=== PATIENT | female | born 1955 | race Caucasian/White ===

== ENCOUNTER 2018-07-12 13:00 | Inpatient (IN) | payer MEDICAID ==
--- NOTE | 2018-07-12 13:25 | ED Physician Chart ---
ED Chief Complaint/HPI - Patient Information Date Seen:: 07/12/18 Time Seen:: 13:10 Chief Complaint:: generalized pruritus History of Present Illness:: Patient had diffuse pruritus for last 1 year. She's also had 19 pound weight loss over an unspecified length of time. Historian:: Patient Review:: Transfer documents Reviewed ED Review of Systems - Review of Systems General/Constitutional: Weight loss Skin: Skin lesions, Rash, Other (family history and physical) Head: No headache Eyes: No loss of vision ENT: No earache Neck: No neck pain Cardio Vascular: No chest pain, No palpitations Pulmonary: No SOB GI: No nausea, No vomiting, No diarrhea Musculoskeletal: No bone or joint pain Endocrine: No polyuria, No polydipsia Psychiatric: Prior psych history Hematopoietic: No bruising Allergic/Immuno: No urticaria Neurological: No syncope, No focal symptoms ED Past Medical History - Past Medical History Past Medical History: PUD/GERD, Dementia, Other (status post urinary tract infection; osteoporosis; hereditary and idiopathic neuropathy; ) Family History: None Social History: Smoker, Other Surgical History: other (2 surgeries on left ankle each for a fracture; right heel pinned) Medication: Reviewed Family Medical History - Family Member Mother History Unknown: Yes ED Physical Exam - Physical Examination General/Constitutional: Awake, Well-developed, well-nourished, Alert, No distress, GCS 15, Non-toxic appearing, Ambulatory Head: Atraumatic Eyes: Lids, conjuctiva normal, PERRL, EOMI Other Skin comments:: Patient actively scratching; diffuse maculopapular rash appearing not to involve the face but there is erythema of the anterior neck; maculopapular rash on the back in a few cases noted to have a linear pattern ENMT: External ears, nose nl, Nasal exam nl, Lips, teeth, gums nl Neck: Nontender, Full ROM w/o pain, No JVD, No nuchal rigidity, No bruit, No mass, No stridor Respiratory: Nl effort/Exclusion, Clear to Auscultation, No Wheeze/Rhonchi/Rales Cardio Vascular: RRR, No murmur, gallop, rubs, NL S1 S2 GI: No tenderness/rebounding/guarding, No organomegaly, No hernia, Normal BS's, Nondistended, No mass/bruits, No McBurney tenderness : No CVA tenderness Extremities: No tenderness or effusion, Full ROM, normal strength in all extremities, No edema, Normal digits & nails Neuro/Psych: Alert/oriented, DTR's symmetric, Normal sensory exam, Normal motor strength, Judgement/insight normal, Mood normal, Normal gait, No focal deficits Misc: Normal back, No paraspinal tenderness ED Labs/Radiology/EKG Results - Lab Results Results: Laboratory Results WBC 17.3 Th/cmm (4.8-10.8) H 07/12/18 13:35 RBC 5.14 Mil/cmm (3.80-5.10) H 07/12/18 13:35 Hgb 12.7 gm/dL (12-16) 07/12/18 13:35 Hct 39.5 % (41.0-60) L 07/12/18 13:35 MCV 76.9 fl (81-100) L 07/12/18 13:35 MCH 24.8 pg (27.0-31.0) L 07/12/18 13:35 MCHC Differential 32.2 pg (28.0-36.0) 07/12/18 13:35 RDW 14.0 % (11.5-20.0) 07/12/18 13:35 Plt Count 518 Th/cmm (150-400) H 07/12/18 13:35 MPV 6.1 fl 07/12/18 13:35 Add Manual Diff YES 07/12/18 13:35 Sodium 137 mEq/L (136-145) 07/12/18 13:35 Potassium 2.8 mEq/L (3.5-5.1) L* 07/12/18 13:35 Chloride 101 mEq/L (98-107) 07/12/18 13:35 Carbon Dioxide 23.7 mEq/L (21.0-31.0) 07/12/18 13:35 Anion Gap 15.1 (7.0-16.0) 07/12/18 13:35 BUN 23 mg/dL (7-25) 07/12/18 13:35 Creatinine 0.9 mg/dL (0.6-1.2) 07/12/18 13:35 Est GFR ( Amer) > 60.0 ml/min (>90) 07/12/18 13:35 Est GFR (Non-Af Amer) > 60.0 ml/min 07/12/18 13:35 BUN/Creatinine Ratio 25.6 07/12/18 13:35 Glucose 99 mg/dL (70-105) 07/12/18 13:35 Calcium 9.5 mg/dL (8.6-10.3) 07/12/18 13:35 - Radiology Results Results: Chest x-ray showed cardiomegaly; no infiltrate ED Septic Shock - . Is Septic Shock (SBP<90, OR Lactate>4 mmol\L) present?: No ED Reassessment (Disposition) - Reassessment Reassessment Condition:: Unchanged - Diagnosis Diagnosis:: Diffuse pruritic rash; leukocytosis; possible scabies; recent weight loss; hypokalemia - Patient Disposition Admitted to:: Med/Surg Spoke to:: Jesus Gonzalez Admitting Medical Physician:: Jesus Gonzalez Condition at Disposition:: Stable, Unchanged
[2018-07-12 13:44] LABS: MEAN PLATELET VOLUME 6.1 fl
[2018-07-12 13:48] LABS: HEMATOCRIT 39.5 % (41.0-60); HEMOGLOBIN 12.7 gm/dL (12-16); MEAN CELL VOLUME 76.9 fl (81-100); MEAN CORPUSCULAR HEMOGLOBIN 24.8 pg (27.0-31.0); MEAN CORPUSCULAR HGB CONC 32.2 pg (28.0-36.0); PLATELET COUNT 518 Th/cmm (150-400); RED BLOOD COUNT 5.14 Mil/cmm (3.80-5.10)
[2018-07-12 13:53] LABS: WHITE BLOOD COUNT 17.3 Th/cmm (4.8-10.8)
[2018-07-12 13:57] LABS: ANION GAP 15.1 (7.0-16.0); BUN - UREA NITROGEN 23 mg/dL (7-25); CALCIUM SERUM 9.5 mg/dL (8.6-10.3); CARBON DIOXIDE 23.7 mEq/L (21.0-31.0); CHLORIDE 101 mEq/L (98-107); CREATININE - SERUM 0.9 mg/dL (0.6-1.2); GFR AFRICAN-AMERICAN > 60.0 ml/min (>90); GFR NON AFRICAN-AMERICAN > 60.0 ml/min; GLUCOSE 99 mg/dL (70-105); SODIUM SERUM 137 mEq/L (136-145)
[2018-07-12 14:00] LABS: POTASSIUM SERUM 2.8 mEq/L (3.5-5.1)
[2018-07-12 14:54] LABS: BAND NEUTROPHILE 0 % (0-10)
[2018-07-12 14:55] LABS: BASOPHIL 0 % (0-3); MONOCYTE 3 % (2-10)
[2018-07-12 14:56] LABS: EOSINOPHIL 1 % (0-5); LYMPHOCYTE 18 % (20-50); NEUTROPHILS 78 % (40-80)
[2018-07-12] MEDS ORDERED: Potassium Chloride 20 mEq ER Tab PO ONE ×2 (15:42→15:48)
[2018-07-12] MEDS ORDERED: Non-Formulary Item 1 EA (Protein Hydrolysate,Milk [Liquid Protein Fortifier] 30 ML) PO SCH (17:00)
[2018-07-12] MEDS: Peg-400/Propylene Ophth Soln 5 mL Bottle EACH EYE SCH (18:24)
[2018-07-12 18:30] LABS: URINE SOURCE RANDOM
[2018-07-12 18:35] VITALS: BP 144/71
[2018-07-12 19:25] LABS: URINE BILIRUBIN NEGATIVE (NEGATIVE); URINE BLOOD TRACE (NEGATIVE); URINE CLARITY CLOUDY (CLEAR); URINE COLOR YELLOW; URINE GLUCOSE (UA) NEGATIVE (NEGATIVE); URINE KETONE NEGATIVE (NEGATIVE); URINE MICROSCOPIC INDICATED? YES
[2018-07-12 19:26] LABS: URINE LEUKOCYTE ESTERASE TRACE (NEGATIVE); URINE NITRATE POSITIVE (NEGATIVE); URINE PROTEIN 1+ mg/dL (NEGATIVE); URINE UROBILINOGEN 0.2 E.U./dL (0.2 - 1.0)
[2018-07-12 19:27] LABS: URINE BACTERIA FEW /hpf (NONE SEEN); URINE EPITHELIAL CELLS NONE SEEN /lpf (FEW); URINE RBC NONE SEEN /hpf (0-5); URINE WBC 0-2 /hpf (0-5)
[2018-07-13 06:44] LABS: % BASOPHILS 0.8 % (0.0-2.0); % EOSINOPHILS 0.3 % (0.0-5.0); % LYMPHOCYTES 12.5 % (20.0-50.0); % MONOCYTES 3.4 % (2.0-10.0); BASOPHILE ABSOLUTE 0.1 Th/cumm (0-0.2); HEMOGLOBIN 10.8 gm/dL (12-16); LYMPHOCYTE ABSOLUTE 1.7 Th/cmm (1.5-3.0); MEAN CELL VOLUME 76.5 fl (81-100); MEAN CORPUSCULAR HEMOGLOBIN 25.4 pg (27.0-31.0); MEAN CORPUSCULAR HGB CONC 33.2 pg (28.0-36.0); MEAN PLATELET VOLUME 5.9 fl; MONOCYTE ABSOLUTE 0.5 Th/cmm (0.3-1.0); RED BLOOD COUNT 4.27 Mil/cmm (3.80-5.10); RED CELL DISTRIBUTION WIDTH 14.4 % (11.5-20.0)
[2018-07-13 07:27] LABS: HEMATOCRIT 32.6 % (41.0-60); PLATELET COUNT 400 Th/cmm (150-400); WHITE BLOOD COUNT 13.3 Th/cmm (4.8-10.8)
[2018-07-13 07:31] LABS: ALBUMIN 2.6 gm/dL (3.7-5.3); ALKALINE PHOSPHATASE 85 U/L (34-104); ANION GAP 10.3 (7.0-16.0); BILIRUBIN,DIRECT 0.13 mg/dL (0.0-0.2); BILIRUBIN,TOTAL 0.4 mg/dL (0.3-1.0); CARBON DIOXIDE 23.8 mEq/L (21.0-31.0); CHLORIDE 107 mEq/L (98-107); CREATININE - SERUM 0.7 mg/dL (0.6-1.2); GFR AFRICAN-AMERICAN > 60.0 ml/min (>90); GFR NON AFRICAN-AMERICAN > 60.0 ml/min; GLUCOSE 149 mg/dL (70-105); POTASSIUM SERUM 4.1 mEq/L (3.5-5.1); SGOT 15 U/L (13-39); SGPT/ALT 11 U/L (7-52); SODIUM SERUM 137 mEq/L (136-145); TOTAL PROTEIN,SERUM 5.2 gm/dL (6.0-8.3)
--- NOTE | 2018-07-13 08:44 | Diagnostic Imaging Report ---
CHEST X-RAY: AP view INDICATION: COPD COMPARISON: None FINDINGS: Increased interstitial lung markings are noted. There is a moderate to large retrocardiac hiatal hernia. There is no focal consolidation or pleural effusions The heart is normal in size. Atherosclerosis of the aortic arch is noted. Degenerative changes of the spine are noted. IMPRESSION: Increased interstitial lung markings. Findings are nonspecific and may be due to chronic changes. No focal consolidation. Moderate to large retrocardiac hiatal hernia. Lateral views of provide additional assessment. Atherosclerotic vascular disease.
[2018-07-13] MEDS: Peg-400/Propylene Ophth Soln 5 mL Bottle EACH EYE SCH ×2 (08:47→16:54)
[2018-07-13 08:53] LABS: BUN - UREA NITROGEN 17 mg/dL (7-25)
[2018-07-13] MEDS ORDERED: Non-Formulary Item 1 EA (Cranberry Fruit [Cranberry] 450 MG) PO SCH (09:00)
--- NOTE | 2018-07-13 09:15 | History and Physical ---
History of Present Illness - HPI Chief Complaint: Pruritus and abnormal weight loss. HPI: Patient refer body itching for a year and loss of weight. Vital Signs: Last Vital Signs Temp 97.3 F 07/13/18 08:29 Pulse 70 07/13/18 08:29 Resp 18 07/13/18 08:29 BP 118/68 07/13/18 08:29 Pulse Ox 97 07/13/18 08:29 Past Medical History Cardiovascular: Report: No Pertinent Hx Pulmonary: Report: No Pertinent Hx ASSISTANT STORE DIRECTOR: Report: No Pertinent Hx GI: Report: No Pertinent Hx Psych: Report: Addictions, Schizophrenia Musculoskeletal: Report: Weakness Rheumatologic: Report: No pertinent Hx Infectious Disease: Report: Other (Possible scabiasis) Renal/: Report: No Pertinent Hx Endocrine: Report: No Pertinent Hx Dermatology: Report: Rash (Macupapular rash in all body) - Past Surgical History Past Surgical History: Other (Ankle surgery) Family Medical History - Family Member Mother History Unknown: Yes Social History Smoke: No Alcohol: None Drugs: Other (Quiet few years ago) Lives: Group Home Domestic Violence: Negative - Medications Home Medications: Home Medication Medication Instructions Recorded Type Acetaminophen [Tylenol] 650 mg PO Q6H PRN 07/12/18 History Calcium Carbonate [Calcium] 1 tab PO BID 07/12/18 History Cranberry Fruit [Cranberry] 450 mg PO DAILY 07/12/18 History Dextran 70/Hypromellose 1 each OP BID 07/12/18 History [Artificial Tears] Diphenhydramine HCL [Benadryl] 50 mg PO Q6H PRN 07/12/18 History Escitalopram Oxalate [Lexapro] 5 mg PO DAILY 07/12/18 History Fluocinonide 0.05% Cream [Lidex 1 appl TP BID 07/12/18 History 0.05%] Loratadine [Claritin] 10 mg PO DAILY 07/12/18 History Melatonin 6 mg PO HS 07/12/18 History Montelukast [Singulair] 10 mg PO DAILY 07/12/18 History Multivitamin w/ Minerals 1 tab PO DAILY 07/12/18 History [Theragran M] Protein Hydrolysate,Milk [Liquid 30 ml PO BID 07/12/18 History Protein Fortifier] QUEtiapine Fumarate [SEROquel] 100 mg PO HS 07/12/18 History Sulfamethoxazole/TMP [Bactrim Ds] 1 tab PO BID 07/12/18 History Zolpidem Tartrate 10 mg PO HS 07/12/18 History busPIRone [Buspar] 5 mg PO BID 07/12/18 History clonazePAM [klonoPIN] 1 mg PO BID 07/12/18 History hydrOXYzine [Atarax*] 50 mg PO Q6H PRN 07/12/18 History - Allergies Allergies/Adverse Reactions: Allergies Allergy/AdvReac Type Severity Reaction Status Date / Time cheese Allergy Verified 07/12/18 13:23 milk Allergy Verified 07/12/18 13:24 Penicillins Allergy Verified 07/12/18 13:23 shrimp Allergy Verified 07/12/18 13:24 Review of Systems - Review of Systems Constitutional: Report: Weakness Eyes: Report: No Significant ENT: Report: No Significant Respiratory: Report: No Significant Cardiovascular: Report: No Significant Gastrointestinal: Report: No Significant Genitourinary: Report: No Significant Musculoskeletal: Report: No Significant Skin: Report: Rash, Other (Generalized itching rash) Neurological: Report: Weakness Physical Exam - Physical Exam HEENT: Report: Ears Nose Throat within normal limits Neck: Report: Within normal limits Cardiovascular Systems: Report: Regular, Rate and Rhythm Respiratory: Report: Breath Sounds are within normal limits Abdomen: Report: Non-tender to palpation, Abnormal Bowel Sounds Extremities: Report: Non-tender to palpation. Skin: Report: Skin Rash noted, Other (Macupapular itching rash in all body except face.) Neuro/Psych: Report: Depressed affect, Other (Anxious.) - Lab Results All Lab Results last 24 hours: Laboratory Results - last 24 hr 07/12/18 07/12/18 07/12/18 13:35 13:35 13:35 WBC 17.3 H RBC 5.14 H Hgb 12.7 Hct 39.5 L MCV 76.9 L MCH 24.8 L MCHC Differential 32.2 RDW 14.0 Plt Count 518 H MPV 6.1 Add Manual Diff YES Neutrophils % Band Neutrophils % 0 Lymphocytes % Monocytes % Eosinophils % Basophils % Neutrophils (Manual) 78 Lymphocytes 18 L Monocytes 3 Eosinophils 1 Basophils 0 Sodium 137 Potassium 2.8 L* Chloride 101 Carbon Dioxide 23.7 Anion Gap 15.1 BUN 23 Creatinine 0.9 Est GFR ( Amer) > 60.0 Est GFR (Non-Af Amer) > 60.0 BUN/Creatinine Ratio 25.6 Glucose 99 Whole Bld Lactic Acid Calcium 9.5 Magnesium 1.7 L Total Bilirubin Direct Bilirubin AST ALT Alkaline Phosphatase Total Protein Albumin Globulin Albumin/Globulin Ratio Urine Source Urine Color Urine Clarity Urine pH Ur Specific Cadet Urine Protein Urine Glucose (UA) Urine Ketones Urine Blood Urine Nitrate Urine Bilirubin Urine Urobilinogen Ur Leukocyte Esterase Urine RBC Urine WBC Ur Epithelial Cells Calcium Oxalate Crystal Urine Bacteria 07/12/18 07/12/18 07/13/18 14:20 17:00 06:25 WBC 13.3 H D RBC 4.27 Hgb 10.8 L Hct 32.6 L D MCV 76.5 L MCH 25.4 L MCHC Differential 33.2 RDW 14.4 Plt Count 400 D MPV 5.9 Add Manual Diff Neutrophils % 83.0 H Band Neutrophils % Lymphocytes % 12.5 L Monocytes % 3.4 Eosinophils % 0.3 Basophils % 0.8 Neutrophils (Manual) Lymphocytes Monocytes Eosinophils Basophils Sodium Potassium Chloride Carbon Dioxide Anion Gap BUN Creatinine Est GFR ( Amer) Est GFR (Non-Af Amer) BUN/Creatinine Ratio Glucose Whole Bld Lactic Acid 1.74 Calcium Magnesium Total Bilirubin Direct Bilirubin AST ALT Alkaline Phosphatase Total Protein Albumin Globulin Albumin/Globulin Ratio Urine Source RANDOM Urine Color YELLOW Urine Clarity CLOUDY H Urine pH 8.0 Ur Specific Cadet 1.010 Urine Protein 1+ Urine Glucose (UA) NEGATIVE Urine Ketones NEGATIVE Urine Blood TRACE Urine Nitrate POSITIVE H Urine Bilirubin NEGATIVE Urine Urobilinogen 0.2 Ur Leukocyte Esterase TRACE H Urine RBC NONE SEEN Urine WBC 0-2 Ur Epithelial Cells NONE SEEN Calcium Oxalate Crystal FEW Urine Bacteria FEW 07/13/18 06:25 WBC RBC Hgb Hct MCV MCH MCHC Differential RDW Plt Count MPV Add Manual Diff Neutrophils % Band Neutrophils % Lymphocytes % Monocytes % Eosinophils % Basophils % Neutrophils (Manual) Lymphocytes Monocytes Eosinophils Basophils Sodium 137 Potassium 4.1 Chloride 107 Carbon Dioxide 23.8 Anion Gap 10.3 BUN 17 Creatinine 0.7 Est GFR ( Amer) > 60.0 Est GFR (Non-Af Amer) > 60.0 BUN/Creatinine Ratio 24.3 Glucose 149 H Whole Bld Lactic Acid Calcium 8.0 L Magnesium Total Bilirubin 0.4 Direct Bilirubin 0.13 AST 15 ALT 11 Alkaline Phosphatase 85 Total Protein 5.2 L Albumin 2.6 L Globulin 2.6 Albumin/Globulin Ratio 1.0 Urine Source Urine Color Urine Clarity Urine pH Ur Specific Cadet Urine Protein Urine Glucose (UA) Urine Ketones Urine Blood Urine Nitrate Urine Bilirubin Urine Urobilinogen Ur Leukocyte Esterase Urine RBC Urine WBC Ur Epithelial Cells Calcium Oxalate Crystal Urine Bacteria - Assessment Assessment: Current Active Problems Problem Status Onset WEIGHT LOSS WITH ITCHING Acute Patient is awake, alert, complaining of body itching. Dx: abnormal loss weight, possible scabiasis, elevated WBC. - Plan Plan: Patient in IV NS, Prednisone, Benadryl, continue with SNF meds, Consult with IM and Psychiatry requested.
--- NOTE | 2018-07-13 09:53 | Diagnostic Imaging Report ---
CHEST X-RAY: AP view INDICATION: Leukocytosis COMPARISON: 07/12/2018 FINDINGS: There is a moderate to large hiatal hernia. Chronic lung changes are noted. There is no focal consolidation or pleural effusions The heart is normal in size. Atherosclerosis is noted. IMPRESSION: Moderate to large size hiatal hernia. Chronic changes with no focal consolidation identified.
--- NOTE | 2018-07-13 15:09 | Diagnostic Imaging Report ---
Ultrasound abdomen HISTORY: Abdominal pain weight loss COMPARISON: Pelvic ultrasound same day Technique: Sonography of the abdomen was performed in multiple planes. FINDINGS: The liver demonstrates normal echogenicity with no evidence of focal lesions. The liver measures 15.8 cm. A solitary gallstones is noted. The common bile duct measures 8 mm. Evaluation of the pancreas is limited due to bowel gas. The right kidney measures 11.2 x 4.6 cm. No evidence of focal lesions or hydronephrosis. The left kidney measures 11.6 x 6.4 cm. There is probable left superior pole parapelvic cyst measuring 3.1 cm x 2.6 cm. There is suggestion of a large left renal calculus. The spleen measures 8.4 cm. IMPRESSION: Cholelithiasis. No evidence of gallbladder wall thickening or pericholecystic fluid. There appear to be a large left renal calculus, possibly staghorn calculus. CT would further clarify Left parapelvic cyst measuring 3.1 x 2.6 cm versus dilated left renal calyx.
--- NOTE | 2018-07-13 15:10 | Diagnostic Imaging Report ---
Ultrasound pelvis HISTORY: Abnormal weight loss, postmenopausal COMPARISON: Ultrasound abdomen the same day Technique: Longitudinal and transverse sonographic sector images of the pelvis were obtained transabdominally and transvaginally. FINDINGS: The uterus measures 4.8 x 2.3 x 3.8 cm. There is small amount fluid within the endometrial cavity. This limits assessment of the endometrial echo complex. The ovaries are not visualized. No free fluid identified. IMPRESSION: Small amount of fluid seen within the endometrial cavity. This limits assessment of the endometrial echo complex. Clinical correlation is recommended given patient's postmenopausal status. Follow-up is needed The ovaries are not identified. No free fluid in the pelvis.
--- NOTE | 2018-07-14 01:15 | Consultation ---
DATE OF CONSULTATION: 07/13/2018 INTERNAL MEDICINE CONSULTATION CHIEF COMPLAINT: Generalized pruritus, worsening rash over a year and a 40-pound weight loss. HISTORY OF PRESENT ILLNESS: The patient is a 63-year-old female with history of acid reflux disease, dementia and history of schizophrenia who started developing a rash, pruritic in nature about a year ago and has gradually getting worst. Apparently, she has been treated with multiple creams at [facility] with mild improvement of her symptoms. The patient was also treated for possible scabies presumably with Elimite again with no improvement of her symptoms. If the rash is intensely pruritic and is currently mostly located on the chest, upper and lower extremities. She also reports about a 40-pound weight loss over the last year, which she blames on lactic products, which she used daily at the assisted. She apparently has an allergy to lactic products and has been avoiding them and; therefore, she has not been eating as she did in the past leading to her weight loss. Pertinent findings on admission include a white count of 18.3 and a UA consistent with UTI. PAST MEDICAL HISTORY: As noted above. PAST SURGICAL HISTORY: None listed. FAMILY HISTORY: Noncontributory to this admission. SOCIAL HISTORY: Currently, denies any tobacco, ETOH or illicit drug usage. She lives at a assisted under the care of Dr. Gonzalez. ALLERGIES: She is allergic to CHEESE, MILK PENICILLINS and SHRIMP. OUTPATIENT MEDICATIONS: Multivitamins every day, BuSpar 5 mg b.i.d., calcium carbonate 500 mg b.i.d., Klonopin 1 mg b.i.d., Lexapro 5 mg every day, Lidex cream b.i.d., hydroxyzine 50 mg q. 6 and Claritin 10 mg every day. REVIEW OF SYSTEMS: CONSTITUTIONAL: She denies any fever or chills. Weight loss as noted above. CARDIAC: No chest pain, no palpitations. PULMONARY: Denies any cough, any phlegm, any secretions and shortness of breath. GASTROINTESTINAL: No bowel habit changes including no acid reflux disease symptomatology. No early satiety. No diarrhea or constipation. GENITOURINARY: Denies any UTI symptomatology at this time. NEUROLOGIC: No changes in vision, no headaches. Denies any syncope. PHYSICAL EXAMINATION: VITAL SIGNS: Temperature 97.3 afebrile, pulse 70, respirations 18, BP 118/68, satting 97% on room air. GENERAL: She is a well-developed, well-nourished female, not in distress. HEAD AND NECK: Normocephalic and atraumatic. Pupils are reactive to light. Extraocular movements are intact. Oropharynx is moist and clear. CARDIOVASCULAR: Regular rate and rhythm without any murmurs. LUNGS: Clear to auscultation bilaterally. ABDOMEN: Soft, supple, nontender, nondistended, normoactive bowel sounds. LOWER EXTREMITIES: There is no edema. DERMATOLOGIC: There is a diffuse maculopapular rash with areas of more intense erythema, vesicular like with excoriations around these vesicles. The rash is nonblanching; it seems. ASSESSMENT: 1. Generalized pruritic rash, differential, but the appearance in the history; this is likely scabies. Other etiologies could include an allergic reaction versus secondary to bed bugs versus likely Staphylococcus infection. 2. Leukocytosis. Unknown if the patient had a recent steroid course, but she does not appear to be septic and this again does not appear to be an infectious rash. 3. Urinary tract infection. 4. Recent weight loss. 5. History of schizophrenia. 7. History of acid reflux disease. PLAN: The patient has been admitted to the medical/surgical floor for further management and care. A scabies skin examination has been asked for and the patient has been empirically started on IV antibiotics as well as Ivermectin x 1 dose. I will also order Elimite to be given again and ESR and CRP levels as well as a CEA AFP levels will be asked for. Will follow urine cultures and sensitivities and albumin and prealbumin level as well as a dietary consult will be asked for. Thank you very much for this consult. JOB# [id number] DANIEL
[2018-07-14 08:26] LABS: HEMATOCRIT 35.9 % (41.0-60); HEMOGLOBIN 11.4 gm/dL (12-16); MEAN CELL VOLUME 77.3 fl (81-100); MEAN CORPUSCULAR HEMOGLOBIN 24.5 pg (27.0-31.0); MEAN CORPUSCULAR HGB CONC 31.7 pg (28.0-36.0); PLATELET COUNT 413 Th/cmm (150-400); RED BLOOD COUNT 4.64 Mil/cmm (3.80-5.10); RED CELL DISTRIBUTION WIDTH 14.8 % (11.5-20.0); WHITE BLOOD COUNT 12.1 Th/cmm (4.8-10.8)
[2018-07-14 08:27] LABS: % BASOPHILS 0.4 % (0.0-2.0); % EOSINOPHILS 0.4 % (0.0-5.0); % LYMPHOCYTES 17.3 % (20.0-50.0); % MONOCYTES 3.9 % (2.0-10.0); LYMPHOCYTE ABSOLUTE 2.1 Th/cmm (1.5-3.0); MEAN PLATELET VOLUME 5.9 fl; MONOCYTE ABSOLUTE 0.5 Th/cmm (0.3-1.0); NEUTROPHILE ABSOLUTE 9.5 Th/cmm (1.8-8.0)
[2018-07-14 08:40] LABS: ALB/GLOB RATIO 0.9 (1.0-1.8); ALBUMIN 2.9 gm/dL (3.7-5.3); ALKALINE PHOSPHATASE 83 U/L (34-104); ANION GAP 13.1 (7.0-16.0); BILIRUBIN,TOTAL 0.3 mg/dL (0.3-1.0); BUN - UREA NITROGEN 13 mg/dL (7-25); CALCIUM SERUM 8.5 mg/dL (8.6-10.3); CARBON DIOXIDE 22.2 mEq/L (21.0-31.0); CHLORIDE 107 mEq/L (98-107); CREATININE - SERUM 0.6 mg/dL (0.6-1.2); GFR AFRICAN-AMERICAN > 60.0 ml/min (>90); GFR NON AFRICAN-AMERICAN > 60.0 ml/min; GLUCOSE 134 mg/dL (70-105); POTASSIUM SERUM 4.3 mEq/L (3.5-5.1); SGOT 16 U/L (13-39); SGPT/ALT 9 U/L (7-52); SODIUM SERUM 138 mEq/L (136-145)
--- NOTE | 2018-07-14 08:59 | General Progress Note ---
Subjective - Review of Systems Service Date: 07/14/17 Subjective: I have back pain and itching Objective - Results Result Diagrams: 07/14/18 08:15 07/14/18 08:15 Recent Labs: Laboratory Last Values WBC 12.1 Th/cmm (4.8-10.8) H 07/14/18 08:15 RBC 4.64 Mil/cmm (3.80-5.10) 07/14/18 08:15 Hgb 11.4 gm/dL (12-16) L 07/14/18 08:15 Hct 35.9 % (41.0-60) L 07/14/18 08:15 MCV 77.3 fl (81-100) L 07/14/18 08:15 MCH 24.5 pg (27.0-31.0) L 07/14/18 08:15 MCHC Differential 31.7 pg (28.0-36.0) 07/14/18 08:15 RDW 14.8 % (11.5-20.0) 07/14/18 08:15 Plt Count 413 Th/cmm (150-400) H 07/14/18 08:15 MPV 5.9 fl 07/14/18 08:15 Add Manual Diff YES 07/12/18 13:35 Neutrophils % 78.0 % (40.0-80.0) 07/14/18 08:15 Band Neutrophils % 0 % (0-10) 07/12/18 13:35 Lymphocytes % 17.3 % (20.0-50.0) L 07/14/18 08:15 Monocytes % 3.9 % (2.0-10.0) 07/14/18 08:15 Eosinophils % 0.4 % (0.0-5.0) 07/14/18 08:15 Basophils % 0.4 % (0.0-2.0) 07/14/18 08:15 Neutrophils (Manual) 78 % (40-80) 07/12/18 13:35 Lymphocytes 18 % (20-50) L 07/12/18 13:35 Monocytes 3 % (2-10) 07/12/18 13:35 Eosinophils 1 % (0-5) 07/12/18 13:35 Basophils 0 % (0-3) 07/12/18 13:35 Sodium 138 mEq/L (136-145) 07/14/18 08:15 Potassium 4.3 mEq/L (3.5-5.1) 07/14/18 08:15 Chloride 107 mEq/L (98-107) 07/14/18 08:15 Carbon Dioxide 22.2 mEq/L (21.0-31.0) 07/14/18 08:15 Anion Gap 13.1 (7.0-16.0) 07/14/18 08:15 BUN 13 mg/dL (7-25) 07/14/18 08:15 Creatinine 0.6 mg/dL (0.6-1.2) 07/14/18 08:15 Est GFR ( Amer) > 60.0 ml/min (>90) 07/14/18 08:15 Est GFR (Non-Af Amer) > 60.0 ml/min 07/14/18 08:15 BUN/Creatinine Ratio 21.7 07/14/18 08:15 Glucose 134 mg/dL (70-105) H 07/14/18 08:15 Whole Bld Lactic Acid 1.74 mmol/L (0.60-1.99) 07/12/18 14:20 Calcium 8.5 mg/dL (8.6-10.3) L 07/14/18 08:15 Magnesium 1.7 mg/dL (1.9-2.7) L 07/12/18 13:35 Total Bilirubin 0.3 mg/dL (0.3-1.0) 07/14/18 08:15 Direct Bilirubin 0.13 mg/dL (0.0-0.2) 07/13/18 06:25 AST 16 U/L (13-39) 07/14/18 08:15 ALT 9 U/L (7-52) 07/14/18 08:15 Alkaline Phosphatase 83 U/L (34-104) 07/14/18 08:15 Total Protein 6.0 gm/dL (6.0-8.3) 07/14/18 08:15 Albumin 2.9 gm/dL (3.7-5.3) L 07/14/18 08:15 Globulin 3.1 gm/dL 07/14/18 08:15 Albumin/Globulin Ratio 0.9 (1.0-1.8) L 02/15/19 08:15 Urine Source RANDOM 07/12/18 17:00 Urine Color YELLOW 07/12/18 17:00 Urine Clarity CLOUDY (CLEAR) H 07/12/18 17:00 Urine pH 8.0 (4.6 - 8.0) 07/12/18 17:00 Ur Specific [place] 1.010 (1.005-1.030) 07/12/18 17:00 Urine Protein 1+ mg/dL (NEGATIVE) 07/12/18 17:00 Urine Glucose (UA) NEGATIVE mg/dL (NEGATIVE) 07/12/18 17:00 Urine Ketones NEGATIVE mg/dL (NEGATIVE) 07/12/18 17:00 Urine Blood TRACE (NEGATIVE) 07/12/18 17:00 Urine Nitrate POSITIVE (NEGATIVE) H 07/12/18 17:00 Urine Bilirubin NEGATIVE (NEGATIVE) 07/12/18 17:00 Urine Urobilinogen 0.2 E.U./dL (0.2 - 1.0) 07/12/18 17:00 Ur Leukocyte Esterase TRACE (NEGATIVE) H 07/12/18 17:00 Urine RBC NONE SEEN /hpf (0-5) 07/12/18 17:00 Urine WBC 0-2 /hpf (0-5) 07/12/18 17:00 Ur Epithelial Cells NONE SEEN /lpf (FEW) 07/12/18 17:00 Calcium Oxalate Crystal FEW /hpf 07/12/18 17:00 Urine Bacteria FEW /hpf (NONE SEEN) 07/12/18 17:00 Vancomycin Trough 2.7 ug/mL (5-10) L 07/14/18 08:15 - Physical Exam Vitals and I&O: Vital Signs Temp 97.3 F 07/14/18 08:51 Pulse 66 07/14/18 08:51 Resp 18 07/14/18 08:51 BP 122/78 07/14/18 08:51 Pulse Ox 98 07/14/18 08:51 Intake & Output 07/13/18 07/14/18 07/14/18 18:59 06:59 18:59 Intake Total 250 240 Balance 250 240 Weight (lbs) 67.132 kg Intake: Intake, IV Amount 250 Vancomycin HCl 1 gm In 250 Sodium Chloride 0.9% 250 ml @ 165 mls/hr IV Q24HR@ 0900 [facility] Rx#:[id number] Oral 240 Other: # Voids 1 Stool Characteristics Soft Soft Weight Source Bedscale Active Medications: Current Medications Acetaminophen (Tylenol) 650 mg PO Q6H PRN PRN Reason: TEMP >100 OR MILD PAIN Last Admin: 07/13/18 16:54 Dose: 650 mg Diphenhydramine HCl (Benadryl) 50 mg PO Q6H [facility] Stop: 09/12/18 08:59 Vancomycin HCl 1 gm/ Sodium (Chloride) 250 mls @ 165 mls/hr IV Q24HR@0900 [facility] Stop: 09/10/18 17:59 Last Infusion: 07/13/18 16:57 Dose: Infused Miscellaneous (Vancomycin Iv Per Pharmacy) 1 ea MC DAILY [facility] Stop: 09/10/18 17:29 Mupirocin (Bactroban Oint) 1 appl NS BID [facility] Stop: 07/20/18 17:01 Prednisone (Deltasone) 20 mg PO Q12HR [facility] Stop: 09/10/18 20:59 Last Admin: 07/13/18 20:38 Dose: 20 mg Propylene Glycol (Systane Ophth Soln) 1 drop EACH EYE BID [facility] Stop: 09/10/18 16:59 Last Admin: 07/13/18 16:54 Dose: 1 drop Quetiapine Fumarate (Seroquel) 100 mg PO HS [facility]; Protocol Stop: 09/10/18 20:59 Last Admin: 07/13/18 20:38 Dose: 100 mg Zolpidem Tartrate (Ambien) 10 mg PO HS [facility] Stop: 09/10/18 20:59 Last Admin: 07/13/18 20:38 Dose: 10 mg General: Alert, Oriented x3 HEENT: Atraumatic Cardiovascular: Regular rate Lungs: Clear to auscultation Abdomen: Bowel sounds Extremities: Other (No edema) Neurological: Normal gait Skin: Other (Macopapular rash in al body except face. ) Psych/Mental Status: Other (Anxious and confused) Assessment/Plan - Problem List Patient Problems: All Active Problems WEIGHT LOSS WITH ITCHING (Acute) - Assessment Assessment: Current Active Problems Problem Status Onset WEIGHT LOSS WITH ITCHING Acute Patient is awake, alert, complaining of body itching. WBC improving. US shows possible renal stone. Dx: abnormal loss weight, possible scabiasis, elevated WBC. - Plan Plan: Patient in IV NS, Prednisone, Benadryl, continue with SNF meds, Already seen by IM, awaiting Psychiatry evaluation. Abdominal and pelvic CT are ordered. Will continue to monitor. Nutritional Asmnt/Malnutr-PDOC - Dietary Evaluation Malnutrition Findings (Please click <Entered> for more info): Nutritional Asmnt/Malnutrition Start: 07/13/18 14: 05 Text: Status: Complete Freq: Protocol: Document 07/13/18 14:05 [email or web address] (Rec: 07/13/18 14:24 MIKG [email or web address]) Nutritional Asmnt/Malnutrition Patient General Information Nutritional Screening High Risk Diagnosis wt loss, possible scabies Pertinent Medical Hx/Surgical Hx PUD/GERD, dementia, UTI Subjective Information Pt seen lying in bed at time of visit, awake and alert. Pt stated she had wt loss in the past months d/t she got rashes and not able to eat. Verified with pt that she is lactose intolerance and allergic to shrimp. Pt is not able to take food contians lactose. Offered pt oral supplements for extra kcal and protein, pt accepted. Current Diet Order/ Nutrition Support regular Pertinent Medications seroquel, vancomycin Pertinent Labs 07/13 Glucose 149, Ca 8.0, Alb 2.6 07/12 K 2.8 Nutritional Hx/Data Height 1.68 m Height (Calculated Centimeters) 167.6 Current Weight (lbs) 67.132 kg Weight (Calculated Kilograms) 67.1 Weight (Calculated Grams) 70589.7 [place] Body Weight 130 Body Mass Index (BMI) 23.8 Weight Status Approriate GI Symptoms GI Symptoms None Last BM not indicated Difficult in: None Food Allergies Yes: milk, shrimp Usual diet at home wt loss of 19lb in past months per H&P Skin Integrity/Comment: scattered rash Estimated Nutritional Goals BEE in Kcals: Using Current wt Calories/Kcals/Kg 25-30 Kcals Calculated 6891-1983 Protein: Using Current wt Protein g/k Protein Calculated 67 Fluid: ml 1675-2010ml (1ml/kcal) Nutritional Problem 1. Problem Problem involuntary wt loss Etiology decreased appetite secondary to rash Signs/Symptoms: wt loss of 19lb in the past few months Malnutrition Alert Is there a minimum of two criteria No selected? Query Text:Check all the applicable criteria. A minimum of two criteria are recommended for diagnosis of either severe or non-severe malnutrition. Malnutrition Related to Morbid Obesity Malnutrition related to morbid obesity No Intervention/Recommendation Comments 1. Continue with regular diet as ordered. Add Ensure Enlive TID for extra kcal and protein to prevent further wt loss. Encouraged oral intake. 2. Monitor PO intake, wt, labs and skin integrity 3. F/U as moderate risk in 3-5 days. Expected Outcomes/Goals Expected Outcomes/Goals 1. PO intake to meet at least 75% of nutritional needs. 2. Wt stability, skin to remain intact, labs to approach WNL.
[2018-07-14] MEDS: Diclofenac 75 mg Tab PO SCH ×2 (09:18→17:06)
[2018-07-14] MEDS: Peg-400/Propylene Ophth Soln 5 mL Bottle EACH EYE SCH ×2 (09:19→17:06)
--- NOTE | 2018-07-14 09:48 | Internal Medicine Prog Note ---
Internal Medicine Subjective - Subjective Service Date: 07/14/18 (RASH IMPROVED. D/W DR. ACEVEDO) Patient is:: awake Patient Complaints of:: itching Per staff patient has:: no adverse event, tolerating meds Internal Medicine Objective - Results Result Diagrams: 07/14/18 08:15 07/14/18 08:15 Recent Labs: Laboratory Last Values WBC 12.1 Th/cmm (4.8-10.8) H 07/14/18 08:15 RBC 4.64 Mil/cmm (3.80-5.10) 07/14/18 08:15 Hgb 11.4 gm/dL (12-16) L 07/14/18 08:15 Hct 35.9 % (41.0-60) L 07/14/18 08:15 MCV 77.3 fl (81-100) L 07/14/18 08:15 MCH 24.5 pg (27.0-31.0) L 07/14/18 08:15 MCHC Differential 31.7 pg (28.0-36.0) 07/14/18 08:15 RDW 14.8 % (11.5-20.0) 07/14/18 08:15 Plt Count 413 Th/cmm (150-400) H 07/14/18 08:15 MPV 5.9 fl 07/14/18 08:15 Add Manual Diff YES 07/12/18 13:35 Neutrophils % 78.0 % (40.0-80.0) 07/14/18 08:15 Band Neutrophils % 0 % (0-10) 07/12/18 13:35 Lymphocytes % 17.3 % (20.0-50.0) L 07/14/18 08:15 Monocytes % 3.9 % (2.0-10.0) 07/14/18 08:15 Eosinophils % 0.4 % (0.0-5.0) 07/14/18 08:15 Basophils % 0.4 % (0.0-2.0) 07/14/18 08:15 Neutrophils (Manual) 78 % (40-80) 07/12/18 13:35 Lymphocytes 18 % (20-50) L 07/12/18 13:35 Monocytes 3 % (2-10) 07/12/18 13:35 Eosinophils 1 % (0-5) 07/12/18 13:35 Basophils 0 % (0-3) 07/12/18 13:35 Sodium 138 mEq/L (136-145) 07/14/18 08:15 Potassium 4.3 mEq/L (3.5-5.1) 07/14/18 08:15 Chloride 107 mEq/L (98-107) 07/14/18 08:15 Carbon Dioxide 22.2 mEq/L (21.0-31.0) 07/14/18 08:15 Anion Gap 13.1 (7.0-16.0) 07/14/18 08:15 BUN 13 mg/dL (7-25) 07/14/18 08:15 Creatinine 0.6 mg/dL (0.6-1.2) 07/14/18 08:15 Est GFR ( Amer) > 60.0 ml/min (>90) 07/14/18 08:15 Est GFR (Non-Af Amer) > 60.0 ml/min 07/14/18 08:15 BUN/Creatinine Ratio 21.7 07/14/18 08:15 Glucose 134 mg/dL (70-105) H 07/14/18 08:15 Whole Bld Lactic Acid 1.74 mmol/L (0.60-1.99) 07/12/18 14:20 Calcium 8.5 mg/dL (8.6-10.3) L 07/14/18 08:15 Magnesium 1.7 mg/dL (1.9-2.7) L 07/12/18 13:35 Total Bilirubin 0.3 mg/dL (0.3-1.0) 07/14/18 08:15 Direct Bilirubin 0.13 mg/dL (0.0-0.2) 07/13/18 06:25 AST 16 U/L (13-39) 07/14/18 08:15 ALT 9 U/L (7-52) 07/14/18 08:15 Alkaline Phosphatase 83 U/L (34-104) 07/14/18 08:15 Total Protein 6.0 gm/dL (6.0-8.3) 07/14/18 08:15 Albumin 2.9 gm/dL (3.7-5.3) L 07/14/18 08:15 Globulin 3.1 gm/dL 07/14/18 08:15 Albumin/Globulin Ratio 0.9 (1.0-1.8) L 07/14/18 08:15 TSH 0.55 uIU/ml (0.34-5.60) 07/14/18 08:15 Urine Source RANDOM 07/12/18 17:00 Urine Color YELLOW 07/12/18 17:00 Urine Clarity CLOUDY (CLEAR) H 07/12/18 17:00 Urine pH 8.0 (4.6 - 8.0) 07/12/18 17:00 Ur Specific [place] 1.010 (1.005-1.030) 07/12/18 17:00 Urine Protein 1+ mg/dL (NEGATIVE) 07/12/18 17:00 Urine Glucose (UA) NEGATIVE mg/dL (NEGATIVE) 07/12/18 17:00 Urine Ketones NEGATIVE mg/dL (NEGATIVE) 07/12/18 17:00 Urine Blood TRACE (NEGATIVE) 07/12/18 17:00 Urine Nitrate POSITIVE (NEGATIVE) H 07/12/18 17:00 Urine Bilirubin NEGATIVE (NEGATIVE) 07/12/18 17:00 Urine Urobilinogen 0.2 E.U./dL (0.2 - 1.0) 07/12/18 17:00 Ur Leukocyte Esterase TRACE (NEGATIVE) H 07/12/18 17:00 Urine RBC NONE SEEN /hpf (0-5) 07/12/18 17:00 Urine WBC 0-2 /hpf (0-5) 07/12/18 17:00 Ur Epithelial Cells NONE SEEN /lpf (FEW) 07/12/18 17:00 Calcium Oxalate Crystal FEW /hpf 07/12/18 17:00 Urine Bacteria FEW /hpf (NONE SEEN) 07/12/18 17:00 Vancomycin Trough 2.7 ug/mL (5-10) L 07/14/18 08:15 - Physical Exam Vitals and I&O: Vital Signs Temp 97.3 F 07/14/18 08:51 Pulse 66 07/14/18 08:51 Resp 18 07/14/18 08:51 BP 122/78 07/14/18 08:51 Pulse Ox 98 07/14/18 08:51 Intake & Output 07/13/18 07/14/18 07/14/18 18:59 06:59 18:59 Intake Total 250 240 Balance 250 240 Weight (lbs) 67.132 kg Intake: Intake, IV Amount 250 Vancomycin HCl 1 gm In 250 Sodium Chloride 0.9% 250 ml @ 165 mls/hr IV Q24HR@ 0900 [facility] Rx#:[id number] Oral 240 Other: # Voids 1 Stool Characteristics Soft Soft Soft Weight Source Bedscale Active Medications: Current Medications Acetaminophen (Tylenol) 650 mg PO Q6H PRN PRN Reason: TEMP >100 OR MILD PAIN Last Admin: 07/13/18 16:54 Dose: 650 mg Diclofenac Sodium (Voltaren) 75 mg PO BID [facility] Stop: 09/12/18 09:14 Last Admin: 07/14/18 09:18 Dose: 75 mg Diphenhydramine HCl (Benadryl) 50 mg PO Q6H [facility] Stop: 09/12/18 08:59 Last Admin: 07/14/18 09:18 Dose: 50 mg Vancomycin HCl 1 gm/ Sodium (Chloride) 250 mls @ 165 mls/hr IV Q24HR@0900 [facility] Stop: 09/10/18 17:59 Last Admin: 07/14/18 09:23 Dose: 165 mls/hr Miscellaneous (Vancomycin Iv Per Pharmacy) 1 ea MC DAILY [facility] Stop: 09/10/18 17:29 Mupirocin (Bactroban Oint) 1 appl NS BID [facility] Stop: 07/20/18 17:01 Last Admin: 07/14/18 09:19 Dose: 1 appl Prednisone (Deltasone) 20 mg PO Q12HR [facility] Stop: 09/10/18 20:59 Last Admin: 07/14/18 09:18 Dose: 20 mg Propylene Glycol (Systane Ophth Soln) 1 drop EACH EYE BID [facility] Stop: 09/10/18 16:59 Last Admin: 07/14/18 09:19 Dose: 1 drop Quetiapine Fumarate (Seroquel) 100 mg PO HS [facility]; Protocol Stop: 09/10/18 20:59 Last Admin: 07/13/18 20:38 Dose: 100 mg Zolpidem Tartrate (Ambien) 10 mg PO HS [facility] Stop: 09/10/18 20:59 Last Admin: 07/13/18 20:38 Dose: 10 mg General: alert HEENT: NC/AT, PERRLA, EOMI Neck: Supple, No JVD, No thyromegaly, No LAD Lungs: CTAB Cardiovascular: RRR, Normal S1, Normal S2 Abdomen: soft, non-tender, non-distended Extremities: excoriation, rash Neurological: no change, alert Internal Medicine Assmt/Plan - Assessment Assessment: GENERILIZED PRURITIC RASH-LIKELY SCABIES PER PHYSICAL FINDINGS UTI-FOLLOW C/S WEIGHT LOSS-NUTRITIONAL SUPPORT LEUKOCYTOSIS-LIKELY PARTIALLY 2TY TO STEROIDS-MONITOR MICROCYTIC ANEMIA-FOLLOW W/U GERD-STABLE. HISTORY OF SCHIZOPHRENIA-CLINICALLY STABLE - Plan Plan: CONT WITH CURRENT MS SUPPORTIVE CARE AND MGT S/P ELIMITE, IVERMECTIN, DAILY WC CONT WITH PREDNISONE/ATARAX FU ANEMIA W/U FU CT SCAN OF PELVIS/ABDOMEN, TUMOR MARKERS CONT WITH OTHER MEDS SCHEDULED Nutritional Asmnt/Malnutr-PDOC - Dietary Evaluation Malnutrition Findings (Please click <Entered> for more info): Nutritional Asmnt/Malnutrition Start: 07/13/18 14: 05 Text: Status: Complete Freq: Protocol: Document 07/13/18 14:05 JOHN (Rec: 07/13/18 14:24 CINDY [email or web address]) Nutritional Asmnt/Malnutrition Patient General Information Nutritional Screening High Risk Diagnosis wt loss, possible scabies Pertinent Medical Hx/Surgical Hx PUD/GERD, dementia, UTI Subjective Information Pt seen lying in bed at time of visit, awake and alert. Pt stated she had wt loss in the past months d/t she got rashes and not able to eat. Verified with pt that she is lactose intolerance and allergic to shrimp. Pt is not able to take food contians lactose. Offered pt oral supplements for extra kcal and protein, pt accepted. Current Diet Order/ Nutrition Support regular Pertinent Medications seroquel, vancomycin Pertinent Labs 07/13 Glucose 149, Ca 8.0, Alb 2.6 07/12 K 2.8 Nutritional Hx/Data Height 1.68 m Height (Calculated Centimeters) 167.6 Current Weight (lbs) 67.132 kg Weight (Calculated Kilograms) 67.1 Weight (Calculated Grams) 25110.7 [place] Body Weight 130 Body Mass Index (BMI) 23.8 Weight Status Approriate GI Symptoms GI Symptoms None Last BM not indicated Difficult in: None Food Allergies Yes: milk, shrimp Usual diet at home wt loss of 19lb in past months per H&P Skin Integrity/Comment: scattered rash Estimated Nutritional Goals BEE in Kcals: Using Current wt Calories/Kcals/Kg 25-30 Kcals Calculated 6535-7678 Protein: Using Current wt Protein g/k Protein Calculated 67 Fluid: ml 1675-2009ml (1ml/kcal) Nutritional Problem 1. Problem Problem involuntary wt loss Etiology decreased appetite secondary to rash Signs/Symptoms: wt loss of 19lb in the past few months Malnutrition Alert Is there a minimum of two criteria No selected? Query Text:Check all the applicable criteria. A minimum of two criteria are recommended for diagnosis of either severe or non-severe malnutrition. Malnutrition Related to Morbid Obesity Malnutrition related to morbid obesity No Intervention/Recommendation Comments 1. Continue with regular diet as ordered. Add Ensure Enlive TID for extra kcal and protein to prevent further wt loss. Encouraged oral intake. 2. Monitor PO intake, wt, labs and skin integrity 3. F/U as moderate risk in 3-5 days. Expected Outcomes/Goals Expected Outcomes/Goals 1. PO intake to meet at least 75% of nutritional needs. 2. Wt stability, skin to remain intact, labs to approach WNL.
--- NOTE | 2018-07-14 10:04 | Diagnostic Imaging Report ---
CT scan abdomen and pelvis without intravenous contrast HISTORY: Pain Total DLP equals 441 CTDI equals 9.9 Axial sections were obtained from the xiphoid process down to the pubic symphysis. Limited sections through the lower chest demonstrate a large retrocardiac hiatal hernia with the gastric fundus above the diaphragm. The liver exhibits a homogeneous parenchyma. No focal lesions. The spleen appears normal. No focal abnormalities within the pancreas. Right kidney appears normal. There is enlarged (3.1 x 1.7 cm staghorn" calculus within the left renal collecting system. No focal parenchymal lesions. The exam of the pelvis demonstrates preservation of normal fat planes. No abnormal soft tissue masses or abnormal fluid collections. Several colonic diverticula are seen. IMPRESSION: 1. Large "staghorn" left renal calculus 2. Large hiatal hernia with the gastric fundus above the diaphragm 3. Mild diverticulosis 4. Degenerative changes within the spine along with partial compression involving the body of T12.
[2018-07-15 06:30] LABS: HEMATOCRIT 32.3 % (41.0-60); HEMOGLOBIN 10.4 gm/dL (12-16); MEAN CELL VOLUME 78.3 fl (81-100); MEAN CORPUSCULAR HEMOGLOBIN 25.3 pg (27.0-31.0); MEAN CORPUSCULAR HGB CONC 32.3 pg (28.0-36.0); MEAN PLATELET VOLUME 6.4 fl; PLATELET COUNT 370 Th/cmm (150-400); RED BLOOD COUNT 4.12 Mil/cmm (3.80-5.10); RED CELL DISTRIBUTION WIDTH 14.5 % (11.5-20.0); WHITE BLOOD COUNT 12.6 Th/cmm (4.8-10.8)
[2018-07-15 06:45] LABS: ALBUMIN 2.7 gm/dL (3.7-5.3); ALKALINE PHOSPHATASE 72 U/L (34-104); ANION GAP 10.1 (7.0-16.0); BILIRUBIN,TOTAL 0.3 mg/dL (0.3-1.0); BUN - UREA NITROGEN 16 mg/dL (7-25); CALCIUM SERUM 8.2 mg/dL (8.6-10.3); CARBON DIOXIDE 24.3 mEq/L (21.0-31.0); CHLORIDE 105 mEq/L (98-107); CREATININE - SERUM 0.6 mg/dL (0.6-1.2); GFR AFRICAN-AMERICAN > 60.0 ml/min (>90); GFR NON AFRICAN-AMERICAN > 60.0 ml/min; GLUCOSE 163 mg/dL (70-105); MAGNESIUM 1.8 mg/dL (1.9-2.7); POTASSIUM SERUM 4.4 mEq/L (3.5-5.1); SGOT 16 U/L (13-39); SGPT/ALT 11 U/L (7-52); SODIUM SERUM 135 mEq/L (136-145); TOTAL PROTEIN,SERUM 5.3 gm/dL (6.0-8.3)
[2018-07-15 08:08] LABS: AFP TUMOR MARKER 3.6 ng/mL (0.0-8.3); CARCINOEMBRYONIC ANTIGEN 4.9 ng/mL (0.0-4.7)
[2018-07-15] MEDS: Peg-400/Propylene Ophth Soln 5 mL Bottle EACH EYE SCH ×2 (09:06→16:25)
[2018-07-15] MEDS: Diclofenac 75 mg Tab PO SCH ×2 (09:06→16:25)
--- NOTE | 2018-07-15 09:51 | General Progress Note ---
Subjective - Review of Systems Subjective: I have back pain and itching Objective - Results Result Diagrams: 07/15/18 05:50 07/15/18 05:50 Recent Labs: Laboratory Last Values WBC 12.6 Th/cmm (4.8-10.8) H 07/15/18 05:50 RBC 4.12 Mil/cmm (3.80-5.10) 07/15/18 05:50 Hgb 10.4 gm/dL (12-16) L 07/15/18 05:50 Hct 32.3 % (41.0-60) L 07/15/18 05:50 MCV 78.3 fl (81-100) L 07/15/18 05:50 MCH 25.3 pg (27.0-31.0) L 07/15/18 05:50 MCHC Differential 32.3 pg (28.0-36.0) 07/15/18 05:50 RDW 14.5 % (11.5-20.0) 07/15/18 05:50 Plt Count 370 Th/cmm (150-400) 07/15/18 05:50 MPV 6.4 fl 07/15/18 05:50 Add Manual Diff YES 07/15/18 05:50 Neutrophils % 78.0 % (40.0-80.0) 07/14/18 08:15 Band Neutrophils % 0 % (0-10) 07/12/18 13:35 Lymphocytes % 17.3 % (20.0-50.0) L 07/14/18 08:15 Monocytes % 3.9 % (2.0-10.0) 07/14/18 08:15 Eosinophils % 0.4 % (0.0-5.0) 07/14/18 08:15 Basophils % 0.4 % (0.0-2.0) 07/14/18 08:15 Neutrophils (Manual) 78 % (40-80) 07/12/18 13:35 Lymphocytes 18 % (20-50) L 07/12/18 13:35 Monocytes 3 % (2-10) 07/12/18 13:35 Eosinophils 1 % (0-5) 07/12/18 13:35 Basophils 0 % (0-3) 07/12/18 13:35 ESR 56 mm/hr (0-30) H 07/14/18 11:15 Sodium 135 mEq/L (136-145) L 07/15/18 05:50 Potassium 4.4 mEq/L (3.5-5.1) 07/15/18 05:50 Chloride 105 mEq/L (98-107) 07/15/18 05:50 Carbon Dioxide 24.3 mEq/L (21.0-31.0) 07/15/18 05:50 Anion Gap 10.1 (7.0-16.0) 07/15/18 05:50 BUN 16 mg/dL (7-25) 07/15/18 05:50 Creatinine 0.6 mg/dL (0.6-1.2) 07/15/18 05:50 Est GFR ( Amer) > 60.0 ml/min (>90) 07/15/18 05:50 Est GFR (Non-Af Amer) > 60.0 ml/min 07/15/18 05:50 BUN/Creatinine Ratio 26.7 07/15/18 05:50 Glucose 163 mg/dL (70-105) H 07/15/18 05:50 Whole Bld Lactic Acid 1.74 mmol/L (0.60-1.99) 07/12/18 14:20 Calcium 8.2 mg/dL (8.6-10.3) L 07/15/18 05:50 Magnesium 1.8 mg/dL (1.9-2.7) L 07/15/18 05:50 Iron 56 ug/dL (27-139) 07/14/18 11:15 TIBC 189 ug/dL (250-450) L 07/14/18 11:15 Iron Saturation 30 % (15-55) 07/14/18 11:15 Unsaturated IBC 133 ug/dL (118-369) 07/14/18 11:15 Total Bilirubin 0.3 mg/dL (0.3-1.0) 07/15/18 05:50 Direct Bilirubin 0.13 mg/dL (0.0-0.2) 07/13/18 06:25 AST 16 U/L (13-39) 07/15/18 05:50 ALT 11 U/L (7-52) 07/15/18 05:50 Alkaline Phosphatase 72 U/L (34-104) 07/15/18 05:50 C-Reactive Protein 3.3 mg/dL (0.0-0.9) H 07/14/18 08:15 Total Protein 5.3 gm/dL (6.0-8.3) L 07/15/18 05:50 Albumin 2.7 gm/dL (3.7-5.3) L 07/15/18 05:50 Globulin 2.6 gm/dL 07/15/18 05:50 Albumin/Globulin Ratio 1.0 (1.0-1.8) 07/15/18 05:50 Prealbumin 15 mg/dL (10-36) 07/14/18 08:15 Tumor Marker AFP 3.6 ng/mL (0.0-8.3) 07/14/18 11:15 Carcinoembryonic Ag 4.9 ng/mL (0.0-4.7) H 07/14/18 11:15 TSH 0.55 uIU/ml (0.34-5.60) 07/14/18 08:15 Urine Source RANDOM 07/12/18 17:00 Urine Color YELLOW 07/12/18 17:00 Urine Clarity CLOUDY (CLEAR) H 07/12/18 17:00 Urine pH 8.0 (4.6 - 8.0) 07/12/18 17:00 Ur Specific [place] 1.010 (1.005-1.030) 07/12/18 17:00 Urine Protein 1+ mg/dL (NEGATIVE) 07/12/18 17:00 Urine Glucose (UA) NEGATIVE mg/dL (NEGATIVE) 07/12/18 17:00 Urine Ketones NEGATIVE mg/dL (NEGATIVE) 07/12/18 17:00 Urine Blood TRACE (NEGATIVE) 07/12/18 17:00 Urine Nitrate POSITIVE (NEGATIVE) H 07/12/18 17:00 Urine Bilirubin NEGATIVE (NEGATIVE) 07/12/18 17:00 Urine Urobilinogen 0.2 E.U./dL (0.2 - 1.0) 07/12/18 17:00 Ur Leukocyte Esterase TRACE (NEGATIVE) H 07/12/18 17:00 Urine RBC NONE SEEN /hpf (0-5) 07/12/18 17:00 Urine WBC 0-2 /hpf (0-5) 07/12/18 17:00 Ur Epithelial Cells NONE SEEN /lpf (FEW) 07/12/18 17:00 Calcium Oxalate Crystal FEW /hpf 07/12/18 17:00 Urine Bacteria FEW /hpf (NONE SEEN) 07/12/18 17:00 Vancomycin Trough 2.7 ug/mL (5-10) L 07/14/18 08:15 - Physical Exam Vitals and I&O: Vital Signs Temp 97.4 F 07/15/18 08:00 Pulse 71 07/15/18 08:00 Resp 18 07/15/18 08:00 BP 117/74 07/15/18 08:00 Pulse Ox 97 07/15/18 08:00 Intake & Output 07/14/18 07/15/18 07/15/18 18:59 06:59 18:59 Intake Total 1000 250 Balance 1000 250 Weight (lbs) 67.132 kg Intake: Intake, IV Amount 250 Vancomycin HCl 1 gm In 250 Sodium Chloride 0.9% 250 ml @ 165 mls/hr IV Q12H [facility] Rx#:[id number] Oral 1000 Other: # Voids 3 # Bowel Movements 0 Stool Characteristics Soft Soft Weight Source Bedscale Active Medications: Current Medications Acetaminophen (Tylenol) 650 mg PO Q6H PRN PRN Reason: TEMP >100 OR MILD PAIN Last Admin: 07/14/18 11:24 Dose: 650 mg Diclofenac Sodium (Voltaren) 75 mg PO BID [facility] Stop: 09/12/18 09:14 Last Admin: 07/15/18 09:06 Dose: 75 mg Diphenhydramine HCl (Benadryl) 50 mg PO Q6H [facility] Stop: 09/12/18 08:59 Last Admin: 07/15/18 06:48 Dose: 50 mg Vancomycin HCl 1 gm/ Sodium (Chloride) 250 mls @ 165 mls/hr IV Q12H [facility] Stop: 09/12/18 20:59 Last Admin: 07/15/18 09:07 Dose: 165 mls/hr Miscellaneous (Vancomycin Iv Per Pharmacy) 1 ea MC DAILY [facility] Stop: 09/10/18 17:29 Mupirocin (Bactroban Oint) 1 appl NS BID [facility] Stop: 07/20/18 17:01 Last Admin: 07/15/18 09:06 Dose: 1 appl Prednisone (Deltasone) 20 mg PO Q12HR [facility] Stop: 09/10/18 20:59 Last Admin: 07/15/18 09:05 Dose: 20 mg Propylene Glycol (Systane Ophth Soln) 1 drop EACH EYE BID [facility] Stop: 09/10/18 16:59 Last Admin: 07/15/18 09:06 Dose: 1 drop Quetiapine Fumarate (Seroquel) 150 mg PO HS [facility]; Protocol Stop: 09/13/18 20:59 Zolpidem Tartrate (Ambien) 10 mg PO HS [facility] Stop: 09/10/18 20:59 Last Admin: 07/14/18 21:31 Dose: 10 mg General: Alert, Oriented x3 HEENT: Atraumatic Cardiovascular: Regular rate Lungs: Clear to auscultation Abdomen: Bowel sounds Extremities: Other (No edema) Neurological: Normal gait Skin: Other (Macopapular rash in al body except face. ) Psych/Mental Status: Other (Anxious and confused) Assessment/Plan - Problem List Patient Problems: All Active Problems WEIGHT LOSS WITH ITCHING (Acute) - Assessment Assessment: Current Active Problems Problem Status Onset WEIGHT LOSS WITH ITCHING Acute Patient is awake, alert, complaining of body itching. WBC improving. Abdominal CT shows Large left renal stone, Hernia hiatal, Diverticulosis, and degenerative c a s in spine. Dx: abnormal loss weight, possible scabiasis, elevated WBC.a - Plan Plan: Patient in IV NS, Prednisone, Benadryl, Seroquel increased to 150 mg daily.a continue with SNF meds, Already seen by IM, awaiting Psychiatry evaluation. Will continue to monitor. A Nutritional Asmnt/Malnutr-PDOC - Dietary Evaluation Malnutrition Findings (Please click <Entered> for more info): Nutritional Asmnt/Malnutrition Start: 07/13/18 14: 05 Text: Status: Complete Freq: Protocol: Document 07/13/18 14:05 LCHENG (Rec: 07/13/18 14:24 L[email or web address]) Nutritional Asmnt/Malnutrition Patient General Information Nutritional Screening High Risk Diagnosis wt loss, possible scabies Pertinent Medical Hx/Surgical Hx PUD/GERD, dementia, UTI Subjective Information Pt seen lying in bed at time of visit, awake and alert. Pt stated she had wt loss in the past months d/t she got rashes and not able to eat. Verified with pt that she is lactose intolerance and allergic to shrimp. Pt is not able to take food contians lactose. Offered pt oral supplements for extra kcal and protein, pt accepted. Current Diet Order/ Nutrition Support regular Pertinent Medications seroquel, vancomycin Pertinent Labs 07/13 Glucose 149, Ca 8.0, Alb 2.6 07/12 K 2.8 Nutritional Hx/Data Height 1.68 m Height (Calculated Centimeters) 167.6 Current Weight (lbs) 67.132 kg Weight (Calculated Kilograms) 67.1 Weight (Calculated Grams) 79486.7 [place] Body Weight 130 Body Mass Index (BMI) 23.8 Weight Status Approriate GI Symptoms GI Symptoms None Last BM not indicated Difficult in: None Food Allergies Yes: milk, shrimp Usual diet at home wt loss of 19lb in past months per H&P Skin Integrity/Comment: scattered rash Estimated Nutritional Goals BEE in Kcals: Using Current wt Calories/Kcals/Kg 25-30 Kcals Calculated 8610-3023 Protein: Using Current wt Protein g/k Protein Calculated 67 Fluid: ml 5-2009ml (1ml/kcal) Nutritional Problem 1. Problem Problem involuntary wt loss Etiology decreased appetite secondary to rash Signs/Symptoms: wt loss of 19lb in the past few months Malnutrition Alert Is there a minimum of two criteria No selected? Query Text:Check all the applicable criteria. A minimum of two criteria are recommended for diagnosis of either severe or non-severe malnutrition. Malnutrition Related to Morbid Obesity Malnutrition related to morbid obesity No Intervention/Recommendation Comments 1. Continue with regular diet as ordered. Add Ensure Enlive TID for extra kcal and protein to prevent further wt loss. Encouraged oral intake. 2. Monitor PO intake, wt, labs and skin integrity 3. F/U as moderate risk in 3-5 days. Expected Outcomes/Goals Expected Outcomes/Goals 1. PO intake to meet at least 75% of nutritional needs. 2. Wt stability, skin to remain intact, labs to approach WNL.
[2018-07-15 11:09] LABS: BAND NEUTROPHILE 1 % (0-10); BASOPHIL 0 % (0-3); EOSINOPHIL 0 % (0-5); LYMPHOCYTE 12 % (20-50); MONOCYTE 2 % (2-10); NEUTROPHILS 85 % (40-80); PLATELET ESTIMATE ADEQUATE (NORMAL)
[2018-07-15 14:45] LABS: TISSUE KOH / SCABIES NEGATIVE FOR SCABIES
--- NOTE | 2018-07-15 16:08 | Internal Medicine Prog Note ---
Internal Medicine Subjective - Subjective Service Date: 07/15/18 (C/O ITCHING) Patient seen and examined:: with staff Patient is:: awake Patient Complaints of:: itching Per staff patient has:: no adverse event, tolerating meds Internal Medicine Objective - Results Result Diagrams: 07/15/18 05:50 07/15/18 05:50 Recent Labs: Laboratory Last Values WBC 12.6 Th/cmm (4.8-10.8) H 07/15/18 05:50 RBC 4.12 Mil/cmm (3.80-5.10) 07/15/18 05:50 Hgb 10.4 gm/dL (12-16) L 07/15/18 05:50 Hct 32.3 % (41.0-60) L 07/15/18 05:50 MCV 78.3 fl (81-100) L 07/15/18 05:50 MCH 25.3 pg (27.0-31.0) L 07/15/18 05:50 MCHC Differential 32.3 pg (28.0-36.0) 07/15/18 05:50 RDW 14.5 % (11.5-20.0) 07/15/18 05:50 Plt Count 370 Th/cmm (150-400) 07/15/18 05:50 MPV 6.4 fl 07/15/18 05:50 Add Manual Diff YES 07/15/18 05:50 Neutrophils % 78.0 % (40.0-80.0) 07/14/18 08:15 Band Neutrophils % 1 % (0-10) 07/15/18 05:50 Lymphocytes % 17.3 % (20.0-50.0) L 07/14/18 08:15 Monocytes % 3.9 % (2.0-10.0) 07/14/18 08:15 Eosinophils % 0.4 % (0.0-5.0) 07/14/18 08:15 Basophils % 0.4 % (0.0-2.0) 07/14/18 08:15 Neutrophils (Manual) 85 % (40-80) H 07/15/18 05:50 Lymphocytes 12 % (20-50) L 07/15/18 05:50 Monocytes 2 % (2-10) 07/15/18 05:50 Eosinophils 0 % (0-5) 07/15/18 05:50 Basophils 0 % (0-3) 07/15/18 05:50 Platelet Estimate ADEQUATE (NORMAL) 07/15/18 05:50 Microcytosis 1+ 07/15/18 05:50 ESR 56 mm/hr (0-30) H 07/14/18 11:15 Sodium 135 mEq/L (136-145) L 07/15/18 05:50 Potassium 4.4 mEq/L (3.5-5.1) 07/15/18 05:50 Chloride 105 mEq/L (98-107) 07/15/18 05:50 Carbon Dioxide 24.3 mEq/L (21.0-31.0) 07/15/18 05:50 Anion Gap 10.1 (7.0-16.0) 07/15/18 05:50 BUN 16 mg/dL (7-25) 07/15/18 05:50 Creatinine 0.6 mg/dL (0.6-1.2) 07/15/18 05:50 Est GFR ( Amer) > 60.0 ml/min (>90) 07/15/18 05:50 Est GFR (Non-Af Amer) > 60.0 ml/min 07/15/18 05:50 BUN/Creatinine Ratio 26.7 07/15/18 05:50 Glucose 163 mg/dL (70-105) H 07/15/18 05:50 Whole Bld Lactic Acid 1.74 mmol/L (0.60-1.99) 07/12/18 14:20 Calcium 8.2 mg/dL (8.6-10.3) L 07/15/18 05:50 Magnesium 1.8 mg/dL (1.9-2.7) L 07/15/18 05:50 Iron 56 ug/dL (27-139) 07/14/18 11:15 TIBC 189 ug/dL (250-450) L 07/14/18 11:15 Iron Saturation 30 % (15-55) 07/14/18 11:15 Unsaturated IBC 133 ug/dL (118-369) 07/14/18 11:15 Total Bilirubin 0.3 mg/dL (0.3-1.0) 07/15/18 05:50 Direct Bilirubin 0.13 mg/dL (0.0-0.2) 07/13/18 06:25 AST 16 U/L (13-39) 07/15/18 05:50 ALT 11 U/L (7-52) 07/15/18 05:50 Alkaline Phosphatase 72 U/L (34-104) 07/15/18 05:50 C-Reactive Protein 3.3 mg/dL (0.0-0.9) H 07/14/18 08:15 Total Protein 5.3 gm/dL (6.0-8.3) L 07/15/18 05:50 Albumin 2.7 gm/dL (3.7-5.3) L 07/15/18 05:50 Globulin 2.6 gm/dL 07/15/18 05:50 Albumin/Globulin Ratio 1.0 (1.0-1.8) 07/15/18 05:50 Prealbumin 15 mg/dL (10-36) 07/14/18 08:15 Tumor Marker AFP 3.6 ng/mL (0.0-8.3) 07/14/18 11:15 Carcinoembryonic Ag 4.9 ng/mL (0.0-4.7) H 07/14/18 11:15 TSH 0.55 uIU/ml (0.34-5.60) 07/14/18 08:15 Urine Source RANDOM 07/12/18 17:00 Urine Color YELLOW 07/12/18 17:00 Urine Clarity CLOUDY (CLEAR) H 07/12/18 17:00 Urine pH 8.0 (4.6 - 8.0) 07/12/18 17:00 Ur Specific [place] 1.010 (1.005-1.030) 07/12/18 17:00 Urine Protein 1+ mg/dL (NEGATIVE) 07/12/18 17:00 Urine Glucose (UA) NEGATIVE mg/dL (NEGATIVE) 07/12/18 17:00 Urine Ketones NEGATIVE mg/dL (NEGATIVE) 07/12/18 17:00 Urine Blood TRACE (NEGATIVE) 07/12/18 17:00 Urine Nitrate POSITIVE (NEGATIVE) H 07/12/18 17:00 Urine Bilirubin NEGATIVE (NEGATIVE) 07/12/18 17:00 Urine Urobilinogen 0.2 E.U./dL (0.2 - 1.0) 07/12/18 17:00 Ur Leukocyte Esterase TRACE (NEGATIVE) H 07/12/18 17:00 Urine RBC NONE SEEN /hpf (0-5) 07/12/18 17:00 Urine WBC 0-2 /hpf (0-5) 07/12/18 17:00 Ur Epithelial Cells NONE SEEN /lpf (FEW) 07/12/18 17:00 Calcium Oxalate Crystal FEW /hpf 07/12/18 17:00 Urine Bacteria FEW /hpf (NONE SEEN) 07/12/18 17:00 Stool Occult Blood NEGATIVE (NEGATIVE) 07/15/18 13:40 Vancomycin Trough 2.7 ug/mL (5-10) L 07/14/18 08:15 Scabies Examination NEGATIVE FOR SCABIES 07/15/18 10:40 - Physical Exam Vitals and I&O: Vital Signs Temp 97.8 F 07/15/18 15:55 Pulse 76 07/15/18 15:55 Resp 18 07/15/18 15:55 BP 162/93 07/15/18 15:55 Pulse Ox 98 07/15/18 15:55 Intake & Output 07/14/18 07/15/18 07/15/18 18:59 06:59 18:59 Intake Total 1000 250 Balance 1000 250 Weight (lbs) 67.132 kg Intake: Intake, IV Amount 250 Vancomycin HCl 1 gm In 250 Sodium Chloride 0.9% 250 ml @ 165 mls/hr IV Q12H [facility] Rx#:[id number] Oral 1000 Other: # Voids 3 # Bowel Movements 0 Stool Characteristics Soft Soft Soft Weight Source Bedscale Active Medications: Current Medications Acetaminophen (Tylenol) 650 mg PO Q6H PRN PRN Reason: TEMP >100 OR MILD PAIN Last Admin: 07/15/18 12:10 Dose: 650 mg Clonazepam (Klonopin) 1 mg PO BID [facility]; Protocol Stop: 09/13/18 16:59 Diclofenac Sodium (Voltaren) 75 mg PO BID [facility] Stop: 09/12/18 09:14 Last Admin: 07/15/18 09:06 Dose: 75 mg Diphenhydramine HCl (Benadryl) 50 mg PO Q6H [facility] Stop: 09/12/18 08:59 Last Admin: 07/15/18 12:04 Dose: 50 mg Vancomycin HCl 1 gm/ Sodium (Chloride) 250 mls @ 165 mls/hr IV Q12H [facility] Stop: 09/12/18 20:59 Last Admin: 07/15/18 09:07 Dose: 165 mls/hr Miscellaneous (Vancomycin Iv Per Pharmacy) 1 ea MC DAILY [facility] Stop: 09/10/18 17:29 Mupirocin (Bactroban Oint) 1 appl NS BID [facility] Stop: 07/20/18 17:01 Last Admin: 07/15/18 09:06 Dose: 1 appl Prednisone (Deltasone) 20 mg PO Q12HR [facility] Stop: 09/10/18 20:59 Last Admin: 07/15/18 09:05 Dose: 20 mg Propylene Glycol (Systane Ophth Soln) 1 drop EACH EYE BID [facility] Stop: 09/10/18 16:59 Last Admin: 07/15/18 09:06 Dose: 1 drop Quetiapine Fumarate (Seroquel) 200 mg PO HS [facility]; Protocol Stop: 09/13/18 20:59 Zolpidem Tartrate (Ambien) 10 mg PO HS [facility] Stop: 09/10/18 20:59 Last Admin: 07/14/18 21:31 Dose: 10 mg General: alert HEENT: NC/AT, PERRLA, EOMI Neck: Supple, No JVD, No thyromegaly, No LAD Lungs: CTAB Cardiovascular: RRR, Normal S1, Normal S2 Abdomen: soft, non-tender, non-distended Extremities: excoriation, rash Neurological: no change, alert - Procedures Procedures: CT SCAN OF ABD/PELVIS: LEFT SIDED [place] CALCULU HIATAL HERNIA DIVERTICULOSIS Internal Medicine Assmt/Plan - Assessment Assessment: GENERILIZED PRURITIC RASH-LIKELY SCABIES PER PHYSICAL FINDINGS UTI-FOLLOW C/S WEIGHT LOSS-NUTRITIONAL SUPPORT LEUKOCYTOSIS-LIKELY PARTIALLY 2TY TO STEROIDS-MONITOR MICROCYTIC ANEMIA-FOLLOW W/U GERD-STABLE. HISTORY OF SCHIZOPHRENIA-CLINICALLY STABLE - Plan Plan: CONT WITH CURRENT MS SUPPORTIVE CARE AND MGT S/P ELIMITE, IVERMECTIN, DAILY WC CONT WITH PREDNISONE/ATARAX FU ANEMIA W/U TUMOR MARKERS CONT WITH OTHER MEDS SCHEDULED Nutritional Asmnt/Malnutr-PDOC - Dietary Evaluation Malnutrition Findings (Please click <Entered> for more info): Nutritional Asmnt/Malnutrition Start: 07/13/18 14: 05 Text: Status: Complete Freq: Protocol: Document 07/13/18 14:05 LCHENG (Rec: 07/13/18 14:24 [facility]-[email or web address]) Nutritional Asmnt/Malnutrition Patient General Information Nutritional Screening High Risk Diagnosis wt loss, possible scabies Pertinent Medical Hx/Surgical Hx PUD/GERD, dementia, UTI Subjective Information Pt seen lying in bed at time of visit, awake and alert. Pt stated she had wt loss in the past months d/t she got rashes and not able to eat. Verified with pt that she is lactose intolerance and allergic to shrimp. Pt is not able to take food contians lactose. Offered pt oral supplements for extra kcal and protein, pt accepted. Current Diet Order/ Nutrition Support regular Pertinent Medications seroquel, vancomycin Pertinent Labs 07/13 Glucose 149, Ca 8.0, Alb 2.6 07/12 K 2.8 Nutritional Hx/Data Height 1.68 m Height (Calculated Centimeters) 167.6 Current Weight (lbs) 67.132 kg Weight (Calculated Kilograms) 67.1 Weight (Calculated Grams) 98996.7 [place] Body Weight 130 Body Mass Index (BMI) 23.8 Weight Status Approriate GI Symptoms GI Symptoms None Last BM not indicated Difficult in: None Food Allergies Yes: milk, shrimp Usual diet at home wt loss of 19lb in past months per H&P Skin Integrity/Comment: scattered rash Estimated Nutritional Goals BEE in Kcals: Using Current wt Calories/Kcals/Kg 25-30 Kcals Calculated 2674-5933 Protein: Using Current wt Protein g/k Protein Calculated 67 Fluid: ml 1675-2010ml (1ml/kcal) Nutritional Problem 1. Problem Problem involuntary wt loss Etiology decreased appetite secondary to rash Signs/Symptoms: wt loss of 19lb in the past few months Malnutrition Alert Is there a minimum of two criteria No selected? Query Text:Check all the applicable criteria. A minimum of two criteria are recommended for diagnosis of either severe or non-severe malnutrition. Malnutrition Related to Morbid Obesity Malnutrition related to morbid obesity No Intervention/Recommendation Comments 1. Continue with regular diet as ordered. Add Ensure Enlive TID for extra kcal and protein to prevent further wt loss. Encouraged oral intake. 2. Monitor PO intake, wt, labs and skin integrity 3. F/U as moderate risk in 3-5 days. Expected Outcomes/Goals Expected Outcomes/Goals 1. PO intake to meet at least 75% of nutritional needs. 2. Wt stability, skin to remain intact, labs to approach WNL.
--- NOTE | 2018-07-16 03:12 | Consultation ---
DATE OF CONSULTATION: 07/15/2018 The patient was seen, chart reviewed, discussed with staff. HISTORY OF PRESENT ILLNESS: A 63-year-old female with a history of mental illness, admitted to the medical floor, has been very anxious, feeling depressed, admits hearing voices, been scratching herself. The patient reports some sadness, helplessness, increased anxiety, mostly because of her scratching. The patient is being checked for scabies. The patient has no suicidal thoughts, but she says sometimes she feels too anxious to deal with her problems. PAST PSYCHIATRIC HISTORY: History of bipolar disorder, possible schizoaffective disorder. PSYCHOSOCIAL HISTORY: The patient resides at [facility] and requires complete care. PAST MEDICAL HISTORY: As per Dr. Gonzalez in [facility]. CURRENT MEDICATION: List reviewed. MENTAL STATUS EXAMINATION: The patient was seen in her room, her speech was fast. The patient was anxious, was scratching her skin. The patient admits having auditory hallucinations. Slightly guarded, but did not have delusional thought. She is oriented to time, place and person. No active suicidal thoughts, no wishes. ASSESSMENT: Bipolar disorder, depressed with psychosis versus mixed type. PLAN: At this time, would recommend continuation of medical supportive measures. We will increase Seroquel to 200 mg p.o. at bedtime. Continue current dose of Lexapro and Klonopin. We will follow closely while in the hospital. Thank you for the consultation. [facility]# [id number]
[2018-07-16 06:24] LABS: % BASOPHILS 0.2 % (0.0-2.0); % EOSINOPHILS 0.5 % (0.0-5.0); % LYMPHOCYTES 14.3 % (20.0-50.0); % MONOCYTES 5.6 % (2.0-10.0); % NEUTROPHILS 79.4 % (40.0-80.0); EOSINOPHILE ABSOLUTE 0.1 Th/cmm (0.1-0.4); HEMATOCRIT 31.4 % (41.0-60); HEMOGLOBIN 10.4 gm/dL (12-16); LYMPHOCYTE ABSOLUTE 1.8 Th/cmm (1.5-3.0); MEAN CELL VOLUME 78.1 fl (81-100); MEAN CORPUSCULAR HEMOGLOBIN 25.8 pg (27.0-31.0); MEAN CORPUSCULAR HGB CONC 33.1 pg (28.0-36.0); MEAN PLATELET VOLUME 6.3 fl; MONOCYTE ABSOLUTE 0.7 Th/cmm (0.3-1.0); PLATELET COUNT 341 Th/cmm (150-400); RED BLOOD COUNT 4.03 Mil/cmm (3.80-5.10); RED CELL DISTRIBUTION WIDTH 14.6 % (11.5-20.0); WHITE BLOOD COUNT 12.6 Th/cmm (4.8-10.8)
[2018-07-16 06:42] LABS: ALBUMIN 2.7 gm/dL (3.7-5.3); ALKALINE PHOSPHATASE 68 U/L (34-104); ANION GAP 10.1 (7.0-16.0); BILIRUBIN,TOTAL 0.3 mg/dL (0.3-1.0); BUN - UREA NITROGEN 14 mg/dL (7-25); CALCIUM SERUM 8.3 mg/dL (8.6-10.3); CARBON DIOXIDE 26.5 mEq/L (21.0-31.0); CHLORIDE 107 mEq/L (98-107); CHOLESTEROL 155 mg/dL (<200); CREATININE - SERUM 0.7 mg/dL (0.6-1.2); GFR AFRICAN-AMERICAN > 60.0 ml/min (>90); GFR NON AFRICAN-AMERICAN > 60.0 ml/min; GLUCOSE 156 mg/dL (70-105); HDL -HIGH DENSITY LIPOPROTEIN 32 mg/dL (23-92); POTASSIUM SERUM 4.6 mEq/L (3.5-5.1); SGOT 15 U/L (13-39); SGPT/ALT 12 U/L (7-52); SODIUM SERUM 139 mEq/L (136-145); TOTAL PROTEIN,SERUM 5.5 gm/dL (6.0-8.3); TRIGLYCERIDES 146 mg/dL (<150)
[2018-07-16] MEDS: Diclofenac 75 mg Tab PO SCH (08:59)
[2018-07-16] MEDS: Peg-400/Propylene Ophth Soln 5 mL Bottle EACH EYE SCH (08:59)
[2018-07-16] MEDS ORDERED: Menthol/Zinc Oxide Oint 113gm Tube TP SCH (14:00)
--- NOTE | 2018-07-18 08:47 | Discharge Summary ---
General Discharge Summary - Discharge Summary Date of Admission: 07/12/18 Admitting Diagnosis: Abnormal weight loss, Possible Scabies, Elevated WBC. Discharge Diagnosis: UTI, dermatitis, schizophrenia, Left renal stone, Hiatal hernia, Diverticulosis, Degenerative Lumbar spine disease. Hospital Course: Patient responded to treatment, itching improved, patient became less anxious, sleeping better. Treatment: She was started with IV NS, IV AB, Prednisone, Benadryl, treatment for scabies was given, She was continue with SNF meds, she was seen by IM and Psychiatry. Condition at Discharge: Stable Disposition: Discharge/Transfered to SNF Home Medications: Home Medication Medication Instructions Recorded Type Acetaminophen [Tylenol] 650 mg PO Q6H PRN 07/12/18 History Calcium Carbonate [Calcium] 1 tab PO BID 07/12/18 History Cranberry Fruit [Cranberry] 450 mg PO DAILY 07/12/18 History Dextran 70/Hypromellose 1 each OP BID 07/12/18 History [Artificial Tears] Diphenhydramine HCL [Benadryl] 50 mg PO Q6H PRN 07/12/18 History Escitalopram Oxalate [Lexapro] 5 mg PO DAILY 07/12/18 History Fluocinonide 0.05% Cream [Lidex 1 appl TP BID 07/12/18 History 0.05%] Loratadine [Claritin] 10 mg PO DAILY 07/12/18 History Melatonin 6 mg PO HS 07/12/18 History Montelukast [Singulair] 10 mg PO DAILY 07/12/18 History Multivitamin w/ Minerals 1 tab PO DAILY 07/12/18 History [Theragran M] Protein Hydrolysate,Milk [Liquid 30 ml PO BID 07/12/18 History Protein Fortifier] QUEtiapine Fumarate [SEROquel] 100 mg PO HS 07/12/18 History Sulfamethoxazole/TMP [Bactrim Ds] 1 tab PO BID 07/12/18 History Zolpidem Tartrate 10 mg PO HS 07/12/18 History busPIRone [Buspar] 5 mg PO BID 07/12/18 History clonazePAM [klonoPIN] 1 mg PO BID 07/12/18 History hydrOXYzine [Atarax*] 50 mg PO Q6H PRN 07/12/18 History Diclofenac [Voltaren] 75 mg PO BID tab 07/16/18 Rx Menthol/Zinc Oxide [Calmoseptine] 1 appl TP TID appl 07/16/18 Rx Mupirocin Oint [Mupirocin*] 1 appl NS BID 5 Days appl 07/16/18 Rx QUEtiapine Fumarate [SEROquel] 200 mg PO HS tab 07/16/18 Rx predniSONE [Deltasone] 20 mg PO Q12HR tab 07/16/18 Rx Activity: Unrestricted Discharge Diet: Regular Consults and Follow-Up: Jesus Gonzalez [Primary Care Provider] - Consulting Speciality: Dermatology, Other (Continue with PCP) Instructions: Leukocytosis, Scabies
[2018-07-18 09:06] LABS: CA 125 (OVARIAN) SEE REF. LAB REPORT; CA 19-9 (PANCREATIC) SEE REF. LAB REPORT
== END 2018-07-16 12:50 | DRG 463 ==
LOC: ER 13:00 → MSI 15:51
PROVIDERS: ADMIT General Practice; ATTEND General Practice
DX: N39.0 Urinary tract infection, site not specified (principal); E43 Unspecified severe protein-calorie malnutrition; F03.90 Unspecified dementia, unspecified severity, without behavioral disturbance, psychotic disturbance, mood disturbance, and anxiety; F31.5 Bipolar disorder, current episode depressed, severe, with psychotic features; B86 Scabies; D50.9 Iron deficiency anemia, unspecified; D72.829 Elevated white blood cell count, unspecified; E87.6 Hypokalemia; F17.210 Nicotine dependence, cigarettes, uncomplicated; G60.9 Hereditary and idiopathic neuropathy, unspecified; K21.9 Gastro-esophageal reflux disease without esophagitis; L29.9 Pruritus, unspecified; M81.0 Age-related osteoporosis without current pathological fracture; N20.0 Calculus of kidney; K44.9 Diaphragmatic hernia without obstruction or gangrene; K57.30 Diverticulosis of large intestine without perforation or abscess without bleeding; T38.0X5A Adverse effect of glucocorticoids and synthetic analogues, initial encounter; Y92.89 Other specified places as the place of occurrence of the external cause; Z68.23 Body mass index [BMI] 23.0-23.9, adult; Z88.0 Allergy status to penicillin
CPT/HCPCS: 36415-UA; 71045-TC; 76700-TC; 76856-TC; 80048-TC; 80053-TC; 80061-TC; 80202-TC; 81001-TC; 82105-90; 82248-TC; 82270-TC; 82378-90; 83540-90; 83550-90; 83605; 83735-TC; 84134-90; 84443-TC; 85007-TC; 85025-TC; 85652-TC; 86141-TC; 86301-90; 86304-90; 87086-90; 87220-90; J1200; J3370; J7040; Q0177; Z7610